=== PATIENT | female | born 1950 | race Caucasian/White ===

== ENCOUNTER 2017-01-14 08:58 | Day surgery (SDC) | payer MEDICARE, BC ==
[~2017-01-14] VITALS: Ht 152.4 cm; Wt 58.1 kg
[~2017-01-14 08:58] MED LIST: AMIT10TA92 PO; ASPI-611 PO; HYDR-3989 PO; LIDOCAINE 1% (10mg/ml) 2ml SDV INJ ONE; LR 1,000 ML IV SCH; NEBI5TAB8 PO; NITR0.4T39 SL; RANI-252 PO; SIMV80TA5 PO; SODI45SP5 EA NOSTRIL
--- OUTSIDE RECORDS SUMMARY | 2017-01-14 09:01 | XMS REPORT | Referral Summary ---
Author Author [facility] Organization [facility] Address Unknown Phone Unavailable Care Team Providers Care Upstream Biomanufacturing Technician Name Role Phone Jas Del Cid Primary Care Physician [phone] Encounter [facility] Date(s): 07/10/15 - 07/10/15 [facility] [address] [place] [address] [place] [id number]- Discharge Disposition: 01-Home or Self Care Attending Physician: Shmuel Del Cid MD Admitting Physician: Shmuel Del Cid MD Vital Signs No data available for this section Problem List Condition Effective Dates Status Health Status Informant Allergic rhinitis Active (disorder)(Confirmed ) Coronary Active arteriosclerosis (disorder)(Confirmed ) Generalized Active osteoarthritis (disorder)(Confirmed ) Myalgia and Active myositis(Confirmed) Dyspnea(Confirmed) Active Essential Active hypertension (disorder)(Confirmed ) Fibromyalgia(Confirm Active ed) Gastroesophageal Active reflux disease (disorder)(Confirmed ) Osteoporosis Active (disorder)(Confirmed ) Pure Active hypercholesterolemia (disorder)(Confirmed ) Tobacco Active dependency(Confirmed ) Allergies, Adverse Reactions, Alerts No Known Medication Allergies Medications amitriptyline 10 mg oral tablet See Instructions, TAKE TWO TABLETS BY MOUTH AT BEDTIME, # 180 tabs, 2 Refill(s) , eRx: [facility] #[id number], TAKE TWO TABLETS BY MOUTH AT BEDTIME Start Date: 02/14/15 Status: Ordered aspirin 81 mg oral tablet, chewable 1 tabs, Chewed, Daily, 0 Refill(s) Start Date: 07/18/14 Status: Ordered Bystolic 5 mg oral tablet 1 tabs, Oral, Daily, 0 Refill(s) Start Date: 07/18/14 Status: Ordered Cymbalta 60 mg oral delayed release capsule See Instructions, TAKE ONE CAPSULE BY MOUTH DAILY, # 30 caps, 2 Refill(s), eRx: [facility] #[id number], TAKE ONE CAPSULE BY MOUTH DAILY Start Date: 06/06/15 Status: Ordered Mucinex mg, Oral, q12hr, Cold Symptoms, 0 Refill(s) Start Date: 04/26/15 Status: Ordered nitroglycerin 0.4 mg sublingual tablet 1 tabs, SubLingual, q5min, as needed for chest pain, If chest pain not relieved within 5 minutes of taking the 1st dose, seek immediate medical attention, # 100 tabs, 0 Refill(s) Start Date: 07/18/14 Status: Ordered [place] 5 mg-325 mg oral tablet 1 tabs, Oral, TID, month supply, # 120 tabs, 0 Refill(s) Start Date: 07/04/15 Status: Ordered Saline Mist 0.65% nasal spray See Instructions, use as needed to help with nasal congestion, 0 Refill(s) Start Date: 07/18/14 Status: Ordered simvastatin 80 mg oral tablet See Instructions, TAKE ONE TABLET BY MOUTH DAILY, # 90 tabs, 1 Refill(s), eRx: [facility] #[id number], TAKE ONE TABLET BY MOUTH DAILY Start Date: 02/07/15 Status: Ordered Results No data available for this section Immunizations Vaccine Date Refusal Reason tetanus/diphth/pertuss (Tdap) adult/adol 04/24/13 influenza virus vaccine, inactivated 07/10/15 influenza virus vaccine, inactivated1 06/25/14 influenza virus vaccine, live 09/20/13 influenza virus vaccine, live 05/16/12 pneumococcal 23-polyvalent vaccine 06/28/07 1Result Comment: [06/25/2014] SEE SCANNED NOTE Procedures Procedure Date Related Diagnosis Body Site Admission to hospital1 05/31/12 Mammogram - screening 09/14/11 DEXA - Dual energy X-ray photon 10/29/09 absorptiometry Mammogram 09/10/08 Colonoscopy2 12/08/04 Hysterectomy 1989 1Dyspnea, possible bronchitis 2chronic colitis, Social History Social History Type Response Smoking Status Current every day smoker; Type: Cigarettes Assessment and Plan No data available for this section
--- OUTSIDE RECORDS SUMMARY | 2017-01-14 09:01 | XMS REPORT | Referral Summary ---
Author Author [facility] Organization [facility] Address Unknown Phone Unavailable Care Team Providers Care Social Secretary Name Role Phone Jas Del Cid Primary Care Physician [phone] Encounter [facility] Date(s): 02/12/15 - 02/12/15 [facility] [address] [place] [address] [place] [id number] Discharge Diagnosis: Change in bowel habits Discharge Diagnosis: Alternating constipation and diarrhea Discharge Diagnosis: History of colitis Discharge Disposition: -Home or Self Care Attending Physician: Bayron Dc MD Admitting Physician: Bayron Dc MD Referring Physician: Shmuel Del Cid MD Vital Signs Most recent to 1 oldest [Reference Range]: Temperature Tympanic 36.3 degC [36.6-38.1 degC] *LOW* (02/12/15 1:38 PM) Peripheral Pulse 80 bpm Rate [60-100 bpm] (02/12/15 1:38 PM) Respiratory Rate 16 br/min [14-20 br/min] (02/12/15 1:38 PM) Blood Pressure 124/72 mmHg [90-140/60-90 mmHg] (02/12/15 1:38 PM) Problem List Condition Effective Dates Status Health [...] # 180 tabs, 2 Refill(s) , eRx: [facility] #[id number], TAKE TWO TABLETS BY MOUTH AT BEDTIME [...] DAILY, # 30 caps, 2 Refill(s), eRx: [facility] #[id number], TAKE ONE CAPSULE BY MOUTH DAILY Start [...] 0 Refill(s) Start Date: 07/18/14 Status: Ordered [place] 5 mg-325 mg oral tablet 1 tabs, Oral, TID, month supply, # 120 tabs, 0 Refill(s) Start Date: 08/09/15 Status: Ordered Saline Mist 0.65% nasal spray See Instructions, use as needed to help with nasal congestion, 0 Refill(s) Start Date: 07/18/14 Status: Ordered simvastatin 80 mg oral tablet 80 mg 1 tabs, Oral, Bedtime (once a day), # 90 tabs, 4 Refill(s), Pharmacy: [facility] #[id number], 1 tabs Oral Bedtime (once a day) Start Date: 08/05/15 Status: Ordered Results No data available for [...] day smoker; Type: Cigarettes Assessment and Plan Extracted from: Title: Ambulatory Patient Education Author: Bayron Dc MD Date: Family Medicine Constipation, Adult Constipation is when a person has fewer than 3 bowel movements a week; has difficulty having a bowel movement; or has stools that are dry, hard, or larger than normal. As people grow older, constipation is more common. If you try to fix constipation with medicines that make you have a bowel movement (laxatives ) , the problem may get worse. Long-term laxative use may cause the muscles of the colon to become weak. A low-fiber diet, not taking in enough fluids, and taking certain medicines may make constipation worse. CAUSES Certain medicines, such as antidepressants, pain medicine, iron supplements , antacids, and water pills. Certain diseases, such as diabetes, irritable bowel syndrome (IBS), thyroid disease, or depression. Not drinking enough water. Not eating enough fiber-rich foods. Stress or travel. Lack of physical activity or exercise. Not going to the restroom when there is the urge to have a bowel movement. Ignoring the urge to have a bowel movement. Using laxatives too much. SYMPTOMS Having fewer than 3 bowel movements a week. Straining to have a bowel movement. Having hard, dry, or larger than normal stools. Feeling full or bloated. Pain in the lower abdomen. Not feeling relief after having a bowel movement. DIAGNOSIS Your caregiver will take a medical history and perform a physical exam. Further testing may be done for severe constipation. Some tests may include: A barium enema X-ray to examine your rectum, colon, and sometimes, your small intestine. A sigmoidoscopy to examine your lower colon. A colonoscopy to examine your entire colon. TREATMENT Treatment will depend on the severity of your constipation and what is causing it. Some dietary treatments include drinking more fluids and eating more fiber- rich foods. Lifestyle treatments may include regular exercise. If these diet and lifestyle recommendations do not help, your caregiver may recommend taking scdn-ikx-kayvsbi laxative medicines to help you have bowel movements. Prescription medicines may be prescribed if bupr-psw-ijviciw medicines do not work. HOME CARE INSTRUCTIONS Increase dietary fiber in your diet, such as fruits, vegetables, whole grains, and beans. Limit high-fat and processed sugars in your diet, such as Turkish fries, hamburgers, cookies, candies, and soda. A fiber supplement may be added to your diet if you cannot get enough fiber from foods. Drink enough fluids to keep your urine clear or pale yellow. Exercise regularly or as directed by your caregiver. Go to the restroom when you have the urge to go. Do not hold it. Only take medicines as directed by your caregiver. Do not take other medicines for constipation without talking to your caregiver first. SEEK IMMEDIATE MEDICAL CARE IF: You have bright red blood in your stool. Your constipation lasts for more than 4 days or gets worse. You have abdominal or rectal pain. You have thin, pencil-like stools. You have unexplained weight loss. MAKE SURE YOU: Understand these instructions. Will watch your condition. Will get help right away if you are not doing well or get worse. Document Released: 05/14/2005 Document Revised: 11/07/2012 Document Reviewed: [facility] Patient Information 2014 [place]. No follow up information was provided. Extracted from: Title: Office Visit Note Author: Bayron Dc MD Date: 02/12/15 Assessment/Plan Alternating constipation and diarrhea, Change in bowel habits Ordered: Office Visit Level 4 New [address] History of colitis Ordered: Office Visit Level 4 New [address] Plan: Colonoscopy with random biopsies. I did review the patient's chart including a recent office note performed by her primary care physician from November 27, 2014. Reviewed my prior office note from January 01, 2005 and a prior colonoscopy report and operative note from December 08, 2004. Patient was found to have pathologic evidence suggestive of collagenous colitis. I informed the patient that this point time given the fact that has been more than 10 years since her last endoscopic evaluation of her colon and the fact that she has began to notice a change in her bowel habits that I would recommend that we would proceed a colonoscopy. Would recommend that random biopsies be performed during this colonoscopy to rule in or rule out ongoing collagenous/microscopic colitis.Risk of endoscopy was discussed with the patient. Risks include but are not inclusive of bleeding and/or perforation requiring surgery. Patient understood and was scheduled.
--- OUTSIDE RECORDS SUMMARY | 2017-01-14 09:01 | XMS REPORT | Referral Summary ---
Author Author [facility] Organization [facility] Address Unknown Phone Unavailable Care Team Providers Care Sampler Radioactive Waste Name Role Phone Jas Del Cid Primary Care Physician [phone] Encounter [facility] [id number] Date(s): 07/28/16 - 07/28/16 [facility] [address] [place] [address]- Discharge Diagnosis: Tobacco dependency Discharge Diagnosis: Essential hypertension Discharge Diagnosis: Pure hypercholesterolemia Discharge Diagnosis: Low back pain Discharge Diagnosis: Nicotine dependence, cigarettes, uncomplicated Discharge Diagnosis: Coronary arteriosclerosis Discharge Diagnosis: Gastroesophageal reflux disease Discharge Diagnosis: Well woman exam Discharge Diagnosis: Fibromyalgia Discharge Disposition: 01-Home or Self Care Attending Physician: Shmuel Del Cid MD Admitting Physician: Shmuel Del Cid MD Vital Signs Most recent to 1 oldest [Reference Range]: Temperature Tympanic 35.8 degC [36.6-38.1 degC] *LOW* (07/28/16 8:28 AM) Peripheral Pulse 84 bpm Rate [60-100 bpm] (07/28/16 8:28 AM) Respiratory Rate 18 br/min [14-20 br/min] (07/28/16 8:28 AM) Blood Pressure 120/80 mmHg [90-140/60-90 mmHg] (07/28/16 8:28 AM) Problem List Condition Effective Dates Status Health Status Informant Allergic rhinitis Active (disorder)(Confirmed ) Coronary Active arteriosclerosis (disorder)(Confirmed ) Generalized Active osteoarthritis (disorder)(Confirmed ) Myalgia and Active myositis(Confirmed) Dyspnea(Confirmed) Active Essential Active hypertension (disorder)(Confirmed ) Fibromyalgia(Confirm Active ed) Gastroesophageal Active reflux disease (disorder)(Confirmed ) Tobacco Active dependency(Confirmed ) Osteoporosis Active (disorder)(Confirmed ) Pure Active hypercholesterolemia (disorder)(Confirmed ) Allergies, Adverse Reactions, Alerts No Known Medication Allergies Medications amitriptyline 10 mg oral tablet See Instructions, TAKE TWO TABLETS BY MOUTH AT BEDTIME, # 180 tabs, eRx: [facility] #[id number], TAKE TWO TABLETS BY MOUTH AT BEDTIME Start Date: 06/11/16 Status: Ordered aspirin 81 mg oral tablet, chewable 1 tabs, Chewed, Daily, 0 Refill(s) Start Date: 07/18/14 Status: Ordered Bystolic 5 mg oral tablet 1 tabs, Oral, Daily, 0 Refill(s) Start Date: 07/18/14 Status: Ordered Cortisporin otic solution 2 drops, Ear-Both, QID, X 7 days, # 10 mL, 0 Refill(s), Pharmacy: [facility] #[id number] Start Date: 07/28/16 Stop Date: 08/04/16 Status: Ordered meloxicam 15 mg oral tablet 15 mg 1 tabs, Oral, Daily, # 30 tabs, 2 Refill(s), Pharmacy: [facility] # [id number], 1 tabs Oral Daily Start Date: 10/30/15 Status: Ordered Mucinex mg, Oral, q12hr, Cold Symptoms, 0 Refill(s) Start Date: 04/26/15 Status: Ordered nitroglycerin 0.4 mg sublingual tablet 0.4 mg 1 tabs, SubLingual, q5min, as needed for chest pain, If chest pain not relieved within 5 minutes of taking the 1st dose, seek immediate medical attention S Suzanne, # 25 tabs, 3 Refill(s), 1 tabs SubLingual q5min,PRN:as needed for chest pain,I... Start Date: 07/28/16 Status: Ordered [place] 5 mg-325 mg oral tablet 1 tabs, Oral, TID, # 120 tabs, 0 Refill(s) Start Date: 06/22/16 Status: Ordered Saline Mist 0.65% nasal spray See Instructions, use as needed to help with nasal congestion, 0 Refill(s) Start Date: 07/18/14 Status: Ordered simvastatin 80 mg oral tablet 80 mg 1 tabs, Oral, Bedtime (once a day), # 90 tabs, 4 Refill(s), Pharmacy: [facility] #[id number], 1 tabs Oral Bedtime (once a day) Start Date: 08/05/15 Status: Ordered Results Hematology Most recent to 1 oldest [Reference Range]: WBC [4.8-10.8 10.2 10*3/uL 10*3/uL] (07/28/16 9:33 AM) RBC [4.00-5.20] 4.68 (07/28/16 9:33 AM) Hgb [12.0-16.0 13.9 gm/dL gm/dL] (07/28/16: AM) Hct [37.0-47.0 %] 39.8 % (07/28/16: AM) MCV [82.0-99.0 fL] 85.0 fL (07/28/16:33 AM) MCH [27.0-32.0 pg] 29.7 pg (07/28/16: AM) MCHC [32.0-36.0 34.9 gm/dL gm/dL] (07/28/16:33 AM) RDW [11.5-14.5 %] 13.8 % (07/28/16: AM) Platelet [150-400 118 10*3/uL 10*3/uL] *LOW* (07/28/16:33 AM) MPV [8.8-14.8 fL] 11.2 fL (07/28/16 9:33 AM) Immature 0.3 % Granulocytes (07/28/16:33 AM) [0.0-1.0 %] Neutrophils [51-75 58 % %] (07/28/16: AM) Lymphocytes [20-46 28 % %] (07/28/16: AM) Monocytes [4-11 %] 8 % (07/28/16 9:33 AM) Eosinophils [0-4 %] 6 % *HI* (07/28/16 9:33 AM) Basophils [0-2 %] 0 % (07/28/16 9:33 AM) Neutro Absolute 5.89 10*3 [1.90-7.00 10*3] (07/28/16 9:33 AM) Lymph Absolute 2.83 10*3 [0.80-3.30 10*3] (07/28/16:33 AM) [place] Absolute 0.80 10*3 [0.30-1.00 10*3] (07/28/16 9:33 AM) Eos Absolute 0.61 10*3 [0.00-0.50 10*3] *HI* (07/28/16 9:33 AM) Baso Absolute 0.03 10*3 [0.00-0.20 10*3] (07/28/16 9:33 AM) Chemistry Most recent to 1 oldest [Reference Range]: Sodium Lvl [135-144 141 mEq/L mEq/L] (07/28/16 9:33 AM) Potassium Lvl 4.1 mEq/L [3.5-5.2 mEq/L] (07/28/16 9:33 AM) Chloride [99-111 106 mEq/L mEq/L] (07/28/16 9:33 AM) CO2 [22-31 mEq/L] 25 mEq/L (07/28/16 9:33 AM) AGAP [3-20] 10 (07/28/16 9:33 AM) BUN [10-20 mg/dL] 18 mg/dL (07/28/16 9:33 AM) Glucose Lvl [70-99 107 mg/dL mg/dL] *HI* (07/28/16 9:33 AM) Creatinine Lvl 1.04 mg/dL [0.57-1.11 mg/dL] (07/28/16 9:33 AM) eGFR [>60 mL/min] 53 mL/min 1 *ABN* (07/28/16 9:33 AM) Calcium Lvl 8.9 mg/dL [8.9-10.5 mg/dL] (07/28/16 9:33 AM) Albumin Lvl [3.4-4.8 4.5 gm/dL gm/dL] (07/28/16 9:33 AM) Total Protein 6.3 gm/dL [6.0-7.6 gm/dL] (07/28/16 9:33 AM) Globulin [1.8-4.0 1.8 gm/dL gm/dL] (07/28/16 9:33 AM) ALT [0-55 U/L] 25 U/L (07/28/16 9:33 AM) AST [5-34 U/L] 19 U/L (07/28/16 9:33 AM) Alk Phos [40-150 97 U/L U/L] (07/28/16 9:33 AM) Bili Total [0.2-1.2 0.4 mg/dL mg/dL] (07/28/16 9:33 AM) Chol [0-199 mg/dL] 161 mg/dL (07/28/16 9:33 AM) Trig [0-149 mg/dL] 157 mg/dL *HI* (07/28/16 9:33 AM) HDL [40-84 mg/dL] 43 mg/dL (07/28/16 9:33 AM) LDL [0-130 mg/dL] 87 mg/dL (07/28/16 9:33 AM) VLDL Cholesterol 31 mg/dL [0-28 mg/dL] *HI* (07/28/16 9:33 AM) Cardiac Risk 3.7 [0.0-5.0] (07/28/16 9:33 AM) TSH with Reflex Free 2.62 T4 [0.35-4.94] (07/28/16 9:33 AM) 1Result Comment: Multiply eGFR results by 1.21 for race. Immunizations Vaccine Date Refusal Reason tetanus/diphth/pertuss (Tdap) adult/adol 04/24/13 influenza virus vaccine, inactivated 07/28/16 influenza virus vaccine, inactivated 07/10/15 influenza virus [...] Cigarettes Assessment and Plan Extracted from: Title: Office Visit Note Author: Shmuel Del Cid MD Date: 07/28/16 Assessment/Plan 1.Well woman exam I've recommended a mammogram and fasting lab today. We discussed that she's overdue for colonoscopy. Last year she tried to do a regular prepped and had vomiting and was unable to keep theprep down. I've recommended that we make an appointment with Dr. Valenzuela to discuss this furtherand see if we can't come up with a different plan for her. We did give a flu shot today she is otherwise up-to-date on vaccinations. Ordered: Comprehensive Metabolic Panel Lipid Panel Periodic Comp Preventive Med 40 to 64 years Est 37465 2.Coronary arteriosclerosis She's having fasting lab work done today. We did refill hersublingual nitroglycerin as well. No change in current treatment. She did see her kohinoor operator in [facility] felt things were stable. Ordered: CBC w/ Differential Comprehensive Metabolic Panel Lipid Panel Periodic Comp Preventive Med 40 to 64 years Est 62592 3.Essential hypertension Blood pressure appears to be well-controlled no change in current treatment is recommended. Ordered: CBC w/ Differential Comprehensive Metabolic Panel Lipid Panel Periodic Comp Preventive Med 40 to 64 years Est 88857 4.Fibromyalgia Chronic stable no change in current treatment. Ordered: CBC w/ Differential Comprehensive Metabolic Panel Periodic Comp Preventive Med 40 to 64 years Est 78311 TSH with Reflex Free T4 5.Gastroesophageal reflux disease She has had some mild increased difficulties with dysphagia but noreflux symptoms otherwise. We'll continue to monitor this if this worsens in anyway further evaluation would be appropriate. We discussed EGDversusesophagram. Ordered: CBC w/ Differential Comprehensive Metabolic Panel Periodic Comp Preventive Med 40 to 64 years Est 38890 6.Pure hypercholesterolemia Fasting laboratory studies ordered today will see what that shows and make further recommendations from there. Ordered: Comprehensive Metabolic Panel Lipid Panel Periodic Comp Preventive Med 40 to 64 years Est 82080 7.Low back pain Lumbar spine films are ordered today will see what that shows. Ordered: Periodic Comp Preventive Med 40 to 64 years Est 51828 8.Tobacco dependency, She has been working on cutting downon her smokingwith the plan to stop smoking at the first of the year. I encouraged her to continue to work towards that goal if she needs assistance I'm glad to help. Nicotine dependence, cigarettes, uncomplicated Ordered: Periodic Comp Preventive Med 40 to 64 years Est 92479 Addendum Dana did complain of some right ear soreness and it does look like she has by a mild external otitis. Will call out some Cortisporin drops for her if it doesn't Nehemias, improve she'll let us know. Shmuel Mark MD on July 28, 2016 10:24:24 PEST CONTROL SUPERVISOR
--- OUTSIDE RECORDS SUMMARY | 2017-01-14 09:01 | XMS REPORT | Continuity of Care Document ---
Author Author [facility] Organization [facility] Address Unknown Phone Unavailable Allergies Medications Problems Procedures Results Encounters ACCT No. Visit Date/Time Discharge Status Pt. Type Provider Facility Loc./Unit Complaint [id number] 11/13/2013 14:51:00 11/13/2013 23 :59:59 CLS Outpatient
--- OUTSIDE RECORDS SUMMARY | 2017-01-14 09:01 | XMS REPORT | Referral Summary ---
Author Author [facility] Organization [facility] Address Unknown Phone Unavailable Care Team Providers Care Carbon Capture Power Plant Manager Name Role Phone Jas Del Cid Primary Care Physician [phone] Encounter [facility] [phone] Date(s): 04/26/15 - 04/26/15 [facility] [address] [place] [address]- Discharge Diagnosis: Tobacco dependency Discharge Diagnosis: Fatigue Discharge Diagnosis: Coronary arteriosclerosis Discharge Diagnosis: Gastroesophageal reflux disease Discharge Diagnosis: Allergic rhinitis Discharge Diagnosis: Degenerative joint disease involving multiple joints Discharge Diagnosis: Pure hypercholesterolemia Discharge Diagnosis: Essential hypertension Discharge Diagnosis: Osteoporosis Discharge Disposition: 01-Home or Self Care Attending Physician: Shmuel Del Cid MD Admitting Physician: Shmuel Del Cid MD Vital Signs Most recent to 1 oldest [Reference Range]: Temperature Tympanic 37.0 degC [36.6-38.1 degC] (04/26/15 3:11 PM) Peripheral Pulse 80 bpm Rate [60-100 bpm] (04/26/15 3:11 PM) Respiratory Rate 16 br/min [14-20 br/min] (04/26/15 3:11 PM) Blood Pressure 132/76 mmHg [90-140/60-90 mmHg] (04/26/15 3:11 PM) Problem List Condition Effective Dates Status [...] # 180 tabs, 2 Refill(s) , eRx: [facility] #[id number], TAKE TWO TABLETS BY MOUTH AT BEDTIME Start Date: 02/14/15 Status: Ordered aspirin 81 mg oral tablet, chewable 1 tabs, Chewed, Daily, 0 Refill(s) Start Date: 07/18/14 Status: Ordered Bystolic 5 mg oral tablet 1 tabs, Oral, Daily, 0 Refill(s) Start Date: 07/18/14 Status: Ordered meloxicam 15 mg oral tablet 15 mg 1 tabs, Oral, Daily, # 30 tabs, 2 Refill(s), Pharmacy: [facility] # [id number], 1 tabs Oral Daily Start Date: 10/30/15 Status: Ordered Mucinex mg, Oral, q12hr, Cold Symptoms, 0 Refill(s) Start Date: 04/26/15 Status: Ordered nitroglycerin 0.4 mg sublingual tablet 1 tabs, SubLingual, q5min, as needed for chest pain, If chest pain not relieved within 5 minutes of taking the 1st dose, seek immediate medical attention, # 100 tabs, 0 Refill(s) Start Date: 07/18/14 Status: Ordered [place] 5 mg-325 mg oral tablet 1 tabs, Oral, TID, month supply, # 120 tabs, 0 Refill(s) Start Date: 10/30/15 Status: Ordered Saline Mist 0.65% nasal spray See Instructions, use as needed to help with nasal congestion, 0 Refill(s) Start Date: 07/18/14 Status: Ordered simvastatin 80 mg oral tablet 80 mg 1 tabs, Oral, Bedtime (once a day), # 90 tabs, 4 Refill(s), Pharmacy: [facility] #[id number], 1 tabs Oral Bedtime (once a day) [...] Note Author: Shmuel Del Cid MD Date: 04/26/15 Assessment/Plan Allergic rhinitis She may use [id number] Flonase as needed. If symptoms are problematic she'll let us now. Coronary arteriosclerosis Chronic stable. Evaluation through her tree wrapper as mentioned above. Laboratory studies ordered. Ordered: Comprehensive Metabolic Panel Lipid Panel MG Mammogram Routine Screening Bilat Degenerative joint disease involving multiple joints Chronic stable. Some increased soreness in shoulder and hip. If it becomes worse she'll let us know. Ordered: Office Visit Level 5 Est 11659 Essential hypertension Blood pressure appears to be well controlled medications reviewed no changes are recommended. Ordered: Office Visit Level 5 Est 36589 Fatigue Further evaluation including laboratory studies is recommended. This may be part of her fibromyalgia but I think further evaluation is warranted. Ordered: CBC w/ Differential Free T4 Office Visit Level 5 Est 42493 T3 Total TSH with Reflex Free T4 Gastroesophageal reflux disease Chronic stable no change in current treatment. Ordered: Office Visit Level 5 Est 97789 Osteoporosis DEXA scan has been ordered. Ordered: BD Bone Density DEXA Axial Skeleton Office Visit Level 5 Est 83547 Vitamin D 25 Hydroxy Level Pure hypercholesterolemia Laboratory studies ordered as listed. Ordered: Office Visit Level 5 Est 26629 Tobacco dependency I've recommended a high-resolution CT for screening because of her long-term chronic tobacco usage. I encouraged her to stop smoking and offered assistance. Ordered: CT Chest High Resolution Only Office Visit Level 5 Est 49449
--- OUTSIDE RECORDS SUMMARY | 2017-01-14 09:02 | XMS REPORT | Referral Summary ---
Author Author [facility] Organization Via LenaKYLIE Del Toro [facility] Address Unknown Phone Unavailable Care Team Providers Care Block Setter Gypsum Name Role Phone Jas Del Cid Primary Care Physician [phone] Encounter Date(s): 10/30/15 - 10/30/15 [facility] KYLIE [facility] [address] [place] [address]- Discharge Diagnosis: Left shoulder pain Discharge Disposition: 01-Home or Self Care Attending Physician: Shmuel Del Cid MD Admitting Physician: Shmuel Del Cid MD Vital Signs Most recent to 1 oldest [Reference Range]: Temperature Tympanic 36.3 degC [36.6-38.1 degC] *LOW* (10/30/15 11:31 AM) Peripheral Pulse 80 bpm Rate [60-100 bpm] (10/30/15 11:31 AM) Respiratory Rate 16 br/min [14-20 br/min] (10/30/15 11:31 AM) Blood Pressure 120/76 mmHg [90-140/60-90 mmHg] (10/30/15 11:31 AM) Problem List Condition Effective Dates Status [...] # 180 tabs, 2 Refill(s) , eRx: [facility] #[id number], TAKE TWO TABLETS BY MOUTH AT BEDTIME Start Date: 02/14/15 Status: Ordered aspirin 81 mg oral tablet, chewable 1 tabs, Chewed, Daily, 0 Refill(s) Start Date: 07/18/14 Status: Ordered Bystolic 5 mg oral tablet 1 tabs, Oral, Daily, 0 Refill(s) Start Date: 07/18/14 Status: Ordered meloxicam 15 mg oral tablet 15 mg 1 tabs, Oral, Daily, # 30 tabs, 2 Refill(s), Pharmacy: [facility] # [id number], 1 tabs Oral Daily Start Date: 10/30/15 Status: Ordered Mucinex mg, Oral, q12hr, Cold Symptoms, 0 Refill(s) Start Date: 04/26/15 Status: Ordered nitroglycerin 0.4 mg sublingual tablet 1 tabs, SubLingual, q5min, as needed for chest pain, If chest pain not relieved within 5 minutes of taking the 1st dose, seek immediate medical attention, # 100 tabs, 0 Refill(s) Start Date: 07/18/14 Status: Ordered Thorp 5 mg-325 mg oral tablet 1 tabs, Oral, TID, month supply, # 120 tabs, 0 Refill(s) Start Date: 10/30/15 Status: Ordered Saline Mist 0.65% nasal spray See Instructions, use as needed to help with nasal congestion, 0 Refill(s) Start Date: 07/18/14 Status: Ordered simvastatin 80 mg oral tablet 80 mg 1 tabs, Oral, Bedtime (once a day), # 90 tabs, 4 Refill(s), Pharmacy: [facility] #[id number], 1 tabs Oral Bedtime (once a day) [...] Note Author: Shmuel Del Cid MD Date: 10/30/15 Assessment/Plan Left shoulder pain I think she may have a rotator cuff and bicipital tendinitis. I've recommended an x-ray to rule out osteoarthritis. I recommended trying meloxicam 15 mg daily for the next 3-4 weeks. If in 2 weeks no improvement may consider an orthopedic referralfor consideration of steroid injection and further evaluation. Warned aboutmeloxicam causing stomach irritation if it bothers her at all she'll let us know. I encouraged her to take it with a full meal. Will let her know if the x-ray shows signs of arthritis. Ordered: Office Visit Level 3 Est 25748 XR Shoulder Complete Left Orders: HYDROcodone-acetaminophen, 1 tabs, Oral, TID, month supply, # 120 tabs , 0 Refill(s) meloxicam, 15 mg 1 tabs, Oral, Daily, # 30 tabs, 2 Refill(s), Pharmacy: [facility] #[id number], 1 tabs Oral Daily
--- OUTSIDE RECORDS SUMMARY | 2017-01-14 09:02 | XMS REPORT | Continuity of Care Document ---
Author Author Shmuel Del Cid MD [facility] Address [address] [facility] [place] [address] Phone Care Team Providers Care Medical Record Technician Name Role Phone Shmuel Del Cid PP Unavailable Payers Payer name Insurance type Covered alliance party ID Authorization(s) Unknown Problems Condition Effective Dates (start - stop) Clinical Status Chronic frontal sinusitis - *Acute CAD, Unspecified - *Chronic Myalgia and myositis, unspecified - *Chronic Hypercholesterolemia - *Chronic Osteoarthrosis, generalized, involving unspecified site - * Chronic GERD - *Chronic Hypertension, Unspecified - *Chronic CAD, Unspecified - Chronic Myalgia and myositis, unspecified - Chronic Hypercholesterolemia - Chronic Osteoarthrosis, generalized, involving unspecified site - Chronic GERD - Chronic Hypertension, Unspecified - Chronic Osteoarthrosis, generalized, involving unspecified site - Chronic CAD, Unspecified - Chronic Myalgia and myositis, unspecified - Chronic Hypercholesterolemia - Chronic Hypertension, Unspecified - Chronic Osteoporosis - Chronic Respiratory Insufficiency - Chronic Tobacco Abuse - Chronic GERD - Chronic Allergic rhinitis, cause unspecified - Chronic CAD, Unspecified - *Chronic Hypercholesterolemia - *Chronic GERD - *Chronic Myalgia and myositis, unspecified - *Chronic Osteoarthrosis, generalized, involving unspecified site - * Chronic Osteoporosis - *Chronic CAD, Unspecified - Chronic Hypercholesterolemia - Chronic GERD - Chronic Myalgia and myositis, unspecified - Chronic Osteoarthrosis, generalized, involving unspecified site - Chronic Osteoporosis - Chronic NEED FOR PROPHYLACTIC VACCINATION WITH COMBINED [id number] ( DTP) (DTAP) VACCINE - PURE HYPERCHOLESTEROLEM - HYPERTENSION NOS - COR ATH UNSP VSL NTV/GFT - MYALGIA AND MYOSITIS NOS - OSTEOPOROSIS NOS - Influenza Vaccine - CAD, Unspecified - *Chronic Hypertension, Unspecified - *Chronic Hypercholesterolemia - *Chronic Myalgia and myositis, unspecified - *Chronic Family History Family Member Diagnosis Age At Onset Status Unknown Social History Social History Element Description Quantity Unknown Allergies, Adverse Reactions, Alerts Substance Reaction Severity Status Unknown Medications Medication Instructions Dosage Effective Dates (start - stop) Status Ceftin 500 mg tablet take 1 tablet (500MG) by oral route every 12 hours 500 MG - Active aspirin 81 mg chewable tablet chew 1 tablet (81MG) by oral route every day 81 MG - Active nitroglycerin 0.[address] 1 tablet (0.4MG) by sublingual route at the 1st sign of attack; may repeat every 5 min until relief; if pain persists after 3 tablets in 15 min, prompt medical attention is recommended 0.4 MG - Active Saline Nasal 0.65 % spray aerosol Use as needed to help with nasal congestion - Active Bystolic 5 mg tablet take 1 tablet (5MG) by oral route every day 5 MG - Active amitriptyline 10 mg tablet Take 2 tablets by mouth at bedtime. 2012 - Active Cymbalta 60 mg capsule,delayed release Take 1 by mouth every day. 2013 - Active simvastatin 80 mg tablet Take 1 tablet by mouth every day. - Active [place] 5 mg-325 mg tablet take 1 tablet by oral route 3 times a day as needed for pain - Active Immunizations Vaccine Date Status Comments pneumo (2 yrs or older) (PPV23) completed - Completed reason: previously given Tdap (Boostrix r) completed Flu (split) (3 yrs or older) completed Flu (split) (3 yrs or older) completed Results Test Name Date and Time Measure Units Reference Range Abnormal Flag Comments Unknown Vital Signs Date / Time: Height Weight Pulse Rate Blood Pressure Temperature /14:58:00 60.00 in 127.00 lbs 76 /min 132/84 mm[Hg] 96.9 F Procedures Procedure Date Unknown Encounters Encounter Location Date Patient Visit [facility] Patient Visit [facility] Patient Visit [facility] Patient Visit [facility] Patient Visit [facility] Patient Visit [facility] Patient Visit [facility] Patient Visit [facility] Patient Visit [facility] Patient Visit [facility] Patient Visit [facility] Advance Directives Directive Effective Date Unknown
[2017-01-14 09:08] VITALS: BP 136/75; PULSE 74; RESP 13; TEMP 98.2; O2SAT 97; Ht 152.4 cm; Wt 58.1 kg
--- NOTE | 2017-01-14 09:56 | ANESPREOP ---
Anesthesia Record Date and Time DATE: 01/14/17 TIME: 09:53 Proposed Surgical Procedure EGD & COLONOSCOPY NPO since: Midnight Allergies: Coded Allergies: No Known Allergies (Unverified , 01/14/17) Ht/Wt/BMI Height: 5 ' 0.00 " Weight: 58.100 kg BMI: 25.0 kg/m2 Vital Signs Date Time Temp Pulse Resp B/P Pulse Ox O2 Delivery O2 Flow Rate FiO2 01/14/17 09:08 98.2 74 13 136/75 97 Room Air Medications Inpatient Medications Current Medications Medications (Trade) Dose Ordered Sig/Micaela Start Time Stop Time Status Last Admin Dose Admin Lactated Ringer's (Lactated Ringers) 1,000 ml @ 30 mls/hr Q24H 01/14/17 07:00 01/14/17 09:46 30 MLS/HR Amitriptyline Hcl (Amitriptyline Hcl) 10 Mg Tablet, 20 MG PO HS, (Reported) Last Taken: on 01/13/171999 Aspirin (Aspirin) 81 Mg Tablet, 81 MG PO DAILY, (Reported) Last Taken: on 01/07/17 Hydrocodone/Apap ([place] 5-325 Tablet) 1 Each Tablet , 1 TAB PO TID, (Reported) Last Taken: on 01/13/172204 Nebivolol HCl (Bystolic) 5 Mg Tablet, 5 MG PO HS, (Reported) Last Taken: on 01/13/171999 Nitroglycerin (Nitroglycerin) 0.4 Mg Tab.subl, 0.4 MG SL Q5MIN PRN for CHEST PAIN, (Reported) Last Taken: on Unknown Date & Time Ranitidine HCl (Zantac 75) 75 Mg Tablet , 75 MG PO DAILY PRN for PRN ORDERS, (Reported) Last Taken: on Unknown Date & Time Simvastatin (Simvastatin) 80 Mg Tablet, 1 TAB PO DAILY, (Reported) Last Taken: on 01/12/171999 Sodium Chloride (Saline Mist) 45 Ml [place], 1 SPRAY EA NOSTRIL PRN PRN for CONGESTION, (Reported) Last Taken: on Unknown Date & Time Currently on Beta Branden: Yes Beta Branden Last Taken: bystolic 01/13/17 at 1999 Medical/Surgical History Anesthesia PMH: Reports: *Angina (CABG in 2001. no CP since CABG. serial Stress tests clean per patient.), *Dyspnea (PER H&P), *Hypertension, Arthritis ( OA ), Reflux, Denies: *Diabetes, Anesthesia Reactions (NO AIRWAY ISSUES), Asthma , Blood Transfusion Reac, CHF, COPD, Cancer, Clotting Problems, Deep Vein Thrombosis, Glaucoma, Hepatitis, Hiatal Hernia, Malignant Hyperthermia, Pneumonia, Renal Disease, Rheumatic Fever, Sleep Apnea, Thyroid Disease, Tuberculosis Smoking Status: Current every day smoker (3packs/week) Has pt. smoked today?: No Use Chewing Tobacco?: No Second Hand Exposure: No Substance Use Type: does not use Alcohol Intake: none HX of Last Menstrual Period: HYST Past Surgical History Orthopedic Surgeries: No Abdominal Surgeries: Yes Genitourinary Surgeries: Cardiac Surgeries: Yes - DOUBLE BY-PASS 2001 Endocrine Surgeries: Reproductive Surgeries: Yes - HYST Neurological Surgeries: No Ear Surgeries: No Nose Surgeries: No Throat Surgeries: Yes - TA 1978 Other Surgeries: Yes - COLONOSCOPY ,TEETH REMOVAL Anesthesia Adverse Reactions: FOUND none Family Hx of Anesthesia Advers: none Hx of Motion Sickness: No Pertinent Findings EKG Rhythm: Sinus Rhythm Physical Exam Respiratory: Lungs clear Airway Assessment Mallampati Score: II TMD: 3 Fingerbreadths Neck Extension: Good Teeth: Upper Dentures, Lower Dentures Overall Assessment: May Be Diff Mask Vent. (teeth removed) ASA: 2 Plan Anesthesia Plan: TIVA Discussion Discussed risks/options/alternatives of anesthesia and questions answered. Patient consents. Nursing pain assessment noted. Attestation Statement Prior to the delivery of any anesthetic medication, I examined the patient, developed the plan, obtained the patient's consent and discussed the risk and benefits of the procedure with the patient/guardian. CE MCLAUGHLIN January 14, 2017 09:56
[2017-01-14] MEDS ORDERED: LIDOCAINE VISCOUS 2% Oral Soln 15ml UD ONE (10:38)
[2017-01-14] MEDS ORDERED: PROPOFOL 500mg 50 ML IV ONE (10:46)
[2017-01-14] MEDS ORDERED: LIDOCAINE 2% (20mg/ml) 5ml PF SDV ONE (10:46)
[2017-01-14 11:29] VITALS: BP 111/64; PULSE 64; RESP 12; TEMP 97.7; O2SAT 100
[2017-01-14 11:44] VITALS: BP 114/62; PULSE 60; RESP 16; O2SAT 96
[2017-01-14 12:00] VITALS: BP 118/68; PULSE 62; RESP 18; O2SAT 98
--- NOTE | 2017-01-14 12:41 | ANESPO ---
Post-Op Note Date 01/14/17 Time: 12:10 Status Pt Participated in Evaluation: Pt participated in person Vital Signs Date Time Temp Pulse Resp B/P Pulse Ox O2 Delivery O2 Flow Rate FiO2 01/14/17 12:00 62 18 118/68 98 Room Air 01/14/17 11:29 97.7 Respiratory Function: Airway patent Cardiovascular Function: Regular pulse Mental Status: Alert/oriented Pain Level Intensity: 0 Unable to Assess Pain Due To: Medicated/Sleeping Hydration: IV infusing Complications during Recovery None apparent Follow-Up Instructions Instructions Per Surgeon ELDON DENNY CRNA January 14, 2017 12:41
--- NOTE | 2017-01-14 19:52 | OPNOTEF ---
DATE OF SERVICE 01/14/2017 SURGEON Bayron Valenzuela MD PREOPERATIVE DIAGNOSES Colorectal cancer screening. Personal history for dysphagia. POSTOPERATIVE DIAGNOSES Colorectal cancer screening. Personal history for dysphagia. Mild colitis. Rectal polyps x 2. Schatzki's ring, hiatal hernia. PROCEDURE Colonoscopy with polypectomies via cold biopsy technique x 2 within rectal vault. Esophagogastroduodenoscopy with biopsies from distal esophagus via cold biopsy technique, sequential balloon dilatation to 54-Senegalese. ANESTHESIA TIVA BRIEF HISTORY/INDICATIONS Mrs. Park is a 66-year-old female who presents today to [facility] to undergo bidirectional endoscopy as a result of her personal history for dysphagia as well as for screening from a colorectal cancer standpoint. For completeness please refer to notes included in the patient's chart. FINDINGS Upon colonoscopy there was some minimal erythema of the mucosa within the rectum and sigmoid colon region. This was not markedly abnormal and there was no evidence for ulcerations. The patient was found have two polyps within the rectal vault that were on the order of 5-6 mm in diameter and were removed in entirety. There was no evidence for angiodysplastic lesions, triston malignancies or diverticula. Upon upper endoscopy the patient was found have a moderate-sized hiatal hernia. Additionally, she was found have a web-like ring involving the distal esophagus consistent with that of a Schatzki's ring. This area was biopsied and a sequential balloon dilatation was performed up to 54-Senegalese without incident. Remaining esophagus, stomach and duodenum were within normal limits. DESCRIPTION OF PROCEDURE After informed consent was obtained, the patient was brought to the operative suite and placed on the table in left lateral decubitus position. The patient subsequently underwent total intravenous anesthesia by the nurse rock crusher per my request. Formal timeout was then completed. Next, a digital rectal examination was performed. Normal sphincter tone. No rectal masses were appreciated. An Olympus colonoscope was inserted in the anus and advanced with the lumen of the colon under direct visualization at all times until the cecum was ascertained. Triangulation of the tenia coli, ileocecal valve and appendiceal lumen were all visualized. The scope was then slowly withdrawn, again maintaining visualization of the lumen at all times. I did not appreciate any evidence for angiodysplastic lesions, diverticula or triston malignancies. The mucosa within the distal sigmoid colon and rectum was mildly erythematous in nature. I elected not to proceed with biopsies for this was fairly subtle. Once the scope was brought back to the rectal vault one could see two diminutive-appearing colonic polyps. These two 5-mm polyps were grasped and removed in their entirety via cold biopsy technique and submitted for pathologic evaluation. A J-maneuver was then performed. No worrisome perianal pathology was noted. The scope was allowed to straighten and was withdrawn through the anal verge. Attention was directed towards upper endoscopy. An Olympus gastroscope was inserted in the oral hypopharynx and subsequently the esophagus under direct visualization. Gastroscope was advanced through the esophagus, stomach, pylorus, duodenal bulb, second portion of the duodenum. Scope was slowly withdrawn. First and second portions of the duodenum were within normal limits. No evidence of duodenitis or ulcerations was noted. Scope was drawn back to the prepyloric region and antrum. Again, no marked mucosal abnormalities were noted. J-maneuver was then performed. Cardia and fundus were within normal limits. The patient was found to have a omnxx-il-fdvionta-sized hiatal hernia. The scope was allowed to straighten and was slowly withdrawn and the remaining corpus of the stomach was well visualized and again without noted abnormalities. Scope was then drawn back to the level of the squamocolumnar junction which was about 5-6 cm above the level of the diaphragm. The patient was found to have a web-like ring at the GE junction consistent with that of a Schatzki's ring. There did appear to be a component of some erythema involving the distal esophagus. Biopsies were obtained from the apparent Schatzki's ring via cold biopsy technique. Scope was then continued to be withdrawn until it was brought forth back up into the cervical esophageal region. Scope was then re-advanced down to the distal esophagus. A sequential balloon dilator was then placed at the GE junction and sequentially dilated up to 54-Senegalese without incident. This did result in some dilatation of the esophagus. There was, however, no evidence for mucosal tear or perforation. Balloon was then left inflated and withdrawn back up into the cricopharyngeal region. Balloon was then deflated and withdrawn through the cricopharyngeal region. Patient tolerated the procedure without difficulty and was sent back to the preop area in stable condition. Await the biopsy results from today's EGD and colonoscopy and proceed accordingly with further recommendations thereafter. [facility]
== END 2017-01-14 12:07 | disposition home or self-care (01) ==
LOC: SCU 08:58
PROVIDERS: ATTEND Surgery
DX: Z12.11 Encounter for screening for malignant neoplasm of colon (principal); K62.1 Rectal polyp; K52.9 Noninfective gastroenteritis and colitis, unspecified; K21.0 Gastro-esophageal reflux disease with esophagitis; K22.2 Esophageal obstruction; K44.9 Diaphragmatic hernia without obstruction or gangrene; R13.10 Dysphagia, unspecified; J30.9 Allergic rhinitis, unspecified; I25.10 Atherosclerotic heart disease of native coronary artery without angina pectoris; I10 Essential (primary) hypertension; M79.7 Fibromyalgia; M81.0 Age-related osteoporosis without current pathological fracture; E78.00 Pure hypercholesterolemia, unspecified; F17.210 Nicotine dependence, cigarettes, uncomplicated; Z79.899 Other long term (current) drug therapy; Z79.82 Long term (current) use of aspirin
CPT/HCPCS: 43239; 43249; 45380; 88305; J7120